=== PATIENT | male | born 1995 | race Two or more races ===

== ENCOUNTER → 2020-06-30 | Outpatient (CLI) | payer SELFPAY | LOC: M LABSMTC 08:30 | PROVIDERS: ATTEND Pediatrics | DX: Z20.822 Contact with and (suspected) exposure to COVID-19 (principal) ==

== ENCOUNTER → 2020-10-11 | Outpatient (CLI) | payer SELFPAY | LOC: M LABSMTC 12:23 | PROVIDERS: ATTEND Pediatrics | DX: Z20.822 Contact with and (suspected) exposure to COVID-19 (principal) ==

== ENCOUNTER → 2022-08-05 | Outpatient (REF) | payer OTHER | LOC: M SMT 12:43 | PROVIDERS: ATTEND Urology | DX: Z30.2 Encounter for sterilization (principal) ==

== ENCOUNTER → 2022-10-01 | Outpatient (REF) | payer OTHER ==
[2022-10-01 10:38] LABS: SEMEN APPEARANCE OPAQUE (OPAQUE); SEMEN VISCOSITY VISCOUS (LIQUID); SEMEN VOLUME 1.8 ml (2.0-5.0); SEMEN pH 8.5 (7.0-8.0)
[2022-10-01 10:39] LABS: WBC CONCENTRATION >1 M/ml (<=1 M/ml)
== END ==
LOC: M SMT 10:31
PROVIDERS: ATTEND Urology
DX: Z30.8 Encounter for other contraceptive management (principal)

== ENCOUNTER → 2022-10-30 | Outpatient (REF) | payer OTHER ==
[2022-10-30 11:20] LABS: SEMEN APPEARANCE OPAQUE (OPAQUE)
[2022-10-30 11:21] LABS: SEMEN VISCOSITY VISCOUS (LIQUID); SEMEN VOLUME 2.3 ml (2.0-5.0); WBC CONCENTRATION <=1 M/ml (<=1 M/ml)
== END ==
LOC: M SMT 09:45
PROVIDERS: ATTEND Urology
DX: Z30.8 Encounter for other contraceptive management (principal)